=== PATIENT | female | born 1975 | race Hispanic/Latino ===

== ENCOUNTER → 2024-04-01 11:24 | Outpatient (REF) | payer OTHER, SELFPAY ==
[2024-04-01 12:46] LABS: Hematocrit 43.2 % (37.0-47.0); Hemoglobin 13.9 g/dL (12.0-16.0); Mean Corp Hgb Conc. 32.2 g/dL (33.0-37.0); Mean Corpuscular Hgb 29.6 pg (27.0-31.0); Mean Corpuscular Volume 92.1 fL (81.0-99.0); Mean Platelet Volume 9.8 fL (7.4-10.4); Platelet Count 242 10^3/uL (130-400); Red Blood Cell Count 4.69 10^6/uL (4.20-5.40); Red Cell Dist. Width 13.5 % (11.5-14.5); White Blood Cell Count 5.9 10^3/uL (4.8-10.8)
[2024-04-01 13:16] LABS: ALT (SGPT) 23 U/L (0-35); AST (SGOT) 25 U/L (14-36); Albumin 4.5 g/dl (3.5-5.0); Alkaline Phosphatase 94 U/L (38-126); Blood Urea Nitrogen 15 mg/dl (7-17); Calcium 9.4 mg/dl (8.4-10.2); Carbon Dioxide 26 mmol/L (22-30); Chloride 102 mmol/L (98-107); Glucose 99 mg/dl (70-99); HDL Cholesterol 45 mg/dl; LDL Cholesterol, Calculated 91 mg/dl; Potassium 4.4 mmol/L (3.5-5.1); Sodium 139 mmol/L (135-145); Total Bilirubin 0.8 mg/dl (0.2-1.3); Total Cholesterol 159 mg/dl (50-199); Total Protein 7.4 g/dl (6.3-8.2); Triglyceride 116 mg/dl (10-149); Very Low Density Lipoprotein 23 mg/dl (0-30); eGFR > 60.00
[2024-04-01 13:43] LABS: Glycohemoglobin (HgbA1c) 6.2 % (4.0-5.6)
[2024-04-01 13:46] LABS: TSH Reflex To Free T4 0.58 uIU/ml (0.47-4.68)
== END ==
LOC: RAD 11:24
PROVIDERS: ATTENDING PHYSICIAN Nurse Practitioner Adult Health
DX: Z00.00 Encounter for general adult medical examination without abnormal findings (principal); Z83.3 Family history of diabetes mellitus
CPT/HCPCS: 36415; 80053; 80061; 83036; 84443; 85027

== ENCOUNTER → 2024-04-04 09:48 | Outpatient (REF) | payer OTHER, SELFPAY ==
[2024-04-10 03:26] LABS: HPV, High Risk Not Detected; HPV, High Risk Source Cervical
== END ==
LOC: CLINIC 09:48
PROVIDERS: ATTENDING PHYSICIAN Nurse Practitioner Adult Health
DX: Z12.4 Encounter for screening for malignant neoplasm of cervix (principal)
CPT/HCPCS: 87624; G0123

== ENCOUNTER → 2024-04-08 14:16 | Outpatient (REF) | payer SELFPAY | LOC: WDC 14:16 | PROVIDERS: ATTENDING PHYSICIAN Nurse Practitioner Adult Health | DX: Z12.31 Encounter for screening mammogram for malignant neoplasm of breast (principal) | CPT/HCPCS: 77063; 77067 ==

== ENCOUNTER → 2024-04-17 09:08 | Outpatient (REF) | payer SELFPAY | LOC: WDC 09:08 | PROVIDERS: ATTENDING PHYSICIAN Nurse Practitioner Adult Health | DX: R92.8 Other abnormal and inconclusive findings on diagnostic imaging of breast (principal) | CPT/HCPCS: 76642 ==

== ENCOUNTER → 2024-07-04 12:15 | Outpatient (REF) | payer OTHER, SELFPAY ==
[2024-07-04 13:08] LABS: Blood Urea Nitrogen 12 mg/dl (7-17); Calcium 9.6 mg/dl (8.4-10.2); Carbon Dioxide 28 mmol/L (22-30); Chloride 102 mmol/L (98-107); Glucose 101 mg/dl (70-99); Potassium 4.6 mmol/L (3.5-5.1); Sodium 138 mmol/L (135-145); eGFR > 60.00
[2024-07-04 14:14] LABS: Glycohemoglobin (HgbA1c) 6.3 % (4.0-5.6)
== END ==
LOC: CLINIC 12:15
PROVIDERS: ATTENDING PHYSICIAN Nurse Practitioner Adult Health
DX: R73.03 Prediabetes (principal)
CPT/HCPCS: 36415; 80048; 83036

== ENCOUNTER → 2024-12-30 11:40 | Outpatient (REF) | payer OTHER, SELFPAY ==
[2024-12-30 13:49] LABS: Blood Urea Nitrogen 13 mg/dl (7-17); Calcium 9.1 mg/dl (8.4-10.2); Carbon Dioxide 24 mmol/L (22-30); Chloride 107 mmol/L (98-107); Glucose 123 mg/dl (70-99); Potassium 4.3 mmol/L (3.5-5.1); Sodium 137 mmol/L (135-145); eGFR > 60.00
[2024-12-30 14:12] LABS: Glycohemoglobin (HgbA1c) 7.5 % (4.0-5.6)
== END ==
LOC: CLINIC 11:40
PROVIDERS: ATTENDING PHYSICIAN Nurse Practitioner Adult Health
DX: R73.03 Prediabetes (principal)
CPT/HCPCS: 36415; 80048; 83036

== ENCOUNTER 2024-12-31 19:10 | Emergency (ER) | payer OTHER, SELFPAY ==
[2024-12-31 19:12] VITALS: BP 129/76
[2024-12-31 19:46] LABS: Hematocrit 38.6 % (37.0-47.0); Hemoglobin 13.0 g/dL (12.0-16.0); Mean Corp Hgb Conc. 33.7 g/dL (33.0-37.0); Mean Corpuscular Volume 86.7 fL (81.0-99.0); Nucleated Red Blood Cells % 0 %; Platelet Count 229 10^3/uL (130-400); Red Cell Dist. Width 13.9 % (11.5-14.5)
[2024-12-31 20:05] LABS: ALT (SGPT) 25 U/L (0-35); AST (SGOT) 27 U/L (14-36); Albumin 4.1 g/dl (3.5-5.0); Alkaline Phosphatase 97 U/L (38-126); Blood Urea Nitrogen 14 mg/dl (7-17); Calcium 9.0 mg/dl (8.4-10.2); Carbon Dioxide 25 mmol/L (22-30); Chloride 105 mmol/L (98-107); Glucose 262 mg/dl (70-99); Potassium 4.0 mmol/L (3.5-5.1); Sodium 138 mmol/L (135-145); Total Protein 6.9 g/dl (6.3-8.2); eGFR > 60.00
[2024-12-31 20:16] LABS: Troponin I < 0.012 ng/ml
[2024-12-31 20:59] LABS: APTT 25.0 Sec (23.4-35.0)
[2024-12-31 21:43] VITALS: BMI 36.5
[2024-12-31 21:51] VITALS: BP 118/75
--- NOTE | 2024-12-31 22:13 | ED.GENMED ---
History of Present Illness
General
Chief Complaint: DVT/Possible Blood Clot
Source: patient and family
Time Seen by Provider: 12/31/24 21:45
History of Present Illness
History of Present Illness:
Note:
CHIEF COMPLAINT(S)
Pain in the left leg for one month.
HISTORY OF PRESENT ILLNESS
The patient is a 49-year-old female who presents with pain in her left leg, persisting for one month. She reports the pain started without any injury and described initially feeling a 'kind of a knob' in her left calf. The pain began while she was
sitting and has been persistent since then. The patient did not sustain any injury to the leg. She visited an urgent care facility previously, and sent for evaluation. The pain is located posterior to the knee, particularly behind it, extending
downward. The discomfort increases with bending the knee and is pronounced when pressure is applied to the muscle region, specifically the hamstring area.
The patient is reassured there is good blood flow to the foot, as evidenced by palpable pulses, and there is no evidence of blood clots. It is suspected the pain is related to muscular strain, possibly involving the hamstring muscles. The
recommendation is for rest and light stretching exercises over the next week. If there is no improvement, follow-up with her primary care physician is advised.
SOCIAL HISTORY
The patient denies the use of any medication at home and confirms she does not take medication regularly. She reports no smoking, alcohol, or drug use.
MEDICATIONS
The patient has not been taking any medications at home but will begin using ibuprofen every six hours for the next two to three days for pain management.
PHYSICAL EXAM
General: Alert, no acute distress.
Skin: Warm, dry.
Head: Normocephalic, atraumatic.
Neck: Supple, trachea midline.
Eyes, Ears, Nose, Mouth, and Throat: Oral mucosa moist.
Cardiovascular: Normal peripheral perfusion, palpable dorsal pedal pulses bilaterally, no edema.
Respiratory: Respirations are non-labored.
Gastrointestinal: Abdomen nondistended.
Back: Normal range of motion, normal alignment.
Musculoskeletal: Tenderness noted in the left hamstring and calf region, full range of motion with discomfort upon knee extension, no knee effusion, and no swelling present.
Neurological: Alert and oriented to person, place, time, and situation, no focal neurological deficit observed.
Psychiatric: Cooperative, appropriate mood, and affect.
PROBLEM LIST
Acute:
- Left leg pain, likely muscular in origin.
PLAN
1. Rest and light stretching of the affected leg.
2. Use of ibuprofen every six hours for 2-3 days for pain relief.
3. Follow up with the primary care physician within 1-2 weeks if symptoms do not improve or worsen.
DIFFERENTIAL DIAGNOSIS
The Differential Diagnosis includes, in no particular order and is not limited to:
- Muscle strain
- Tendinitis
- Deep vein thrombosis (ruled out)
- Bakers cyst
- Sciatica
- Arthritis
- Nerve compression
- Myositis
- Popliteal artery entrapment syndrome
- Lumbar radiculopathy
Disposition:
SUMMARY OF ENCOUNTER
A 49-year-old female presents with left leg pain persisting for one month. The pain began without any injury and is localized around the knee, especially behind it, extending downward. Ultrasound examination at an urgent care facility ruled out deep
vein thrombosis (DVT). The emergency department evaluation included confirmation of DVT exclusion and an electrocardiogram (EKG) showing normal sinus rhythm without ischemic changes. The patient demonstrates tenderness in the left gastrocnemius
muscle region with good arterial blood flow, indicating a likely musculoskeletal origin rather than vascular. The patient has elevated blood glucose noted on a complete metabolic panel (CMP). Troponin levels are negative, ruling out cardiac
involvement.
ASSESSMENT
Left leg pain, likely of musculoskeletal origin due to suspected calf muscle strain. Elevated blood glucose level needs consideration for follow-up.
PLAN
Rest and light stretching of the affected leg are recommended. Use of ibuprofen every six hours for 2-3 days for pain relief. Patient is advised to follow up with her primary care physician within 1-2 weeks for repeat fasting lab work and further
evaluation of leg pain if symptoms do not improve.
INDEPENDENT REVIEW OF LABS AND INTERPRETATION OF TESTS
- My independent review of EKG shows normal sinus rhythm at a rate of 85, with a normal axis and no acute ischemic changes.
- My independent review of the complete metabolic panel (CMP) shows an elevated blood glucose level at 262 mg/dL.
PATIENT EDUCATION AND COUNSELING
Discussed the importance of rest and light stretching exercises to aid recovery from suspected muscle strain. Advised monitoring of blood glucose levels and possible further evaluation for hyperglycemia implications with her primary care physician.
FOLLOW-UP INSTRUCTIONS
Follow up with primary care physician within 1-2 weeks for repeat fasting lab work and further leg pain evaluation if no improvement.
MEDICATION RECONCILIATION
No home medications. Begin ibuprofen every six hours for the next 2-3 days for pain management.
MEDICAL DECISION MAKING
- Number and Complexity of Problems Addressed: Differential diagnoses include muscle strain, tendonitis, Bakers cyst, sciatica, arthritis, nerve compression, myositis, popliteal artery entrapment syndrome, lumbar radiculopathy, and deep vein
thrombosis (ruled out).
- Data:
- Category 1: Reviewed lab tests include EKG and CMP, with independent interpretation of results as noted.
- Risk: Prescription medication (ibuprofen) was prescribed for pain management. Consideration of Admission/Observation: Escalation of care was considered but the patient is deemed safe for outpatient management, as work-up showed no acute
life-threatening processes.
DIAGNOSIS
- Muscle strain, unspecified: ICD-10: M62.40
- Hypoglycemia, unspecified: ICD-10: R73.9
Past History
Past History
ED Past Medical History: None
ED Past Surgical History: None
Social History
Tobacco: Non-smoker
Alcohol: None
Phy Exam
Physical Exam
Physical Exam:
.
Course
Orders/Labs/Results
Orders:
Orders
12/31/24 19:17
ECG [Electrocardiogram (*1)] Urgent
Reason for Study: Chest Pain
EKG- Treatment ONCE
US Periph Venous LOWER Ext LT Urgent
Comment:
Reason For Exam: L leg pain
12/31/24 19:34
Complete Blood Count/With Diff Urgent
Comprehensive Metabolic Panel Urgent
PTT Urgent
Troponin I Urgent
Abnormal Lab Results
12/31/24
19:34
Glucose 262 H mg/dl
(70-99)
12/31/24 19:34
12/31/24 19:34
Vital Signs
Initial and Last Documented VS:
Initial Vital Signs
Temp Pulse Resp BP Pulse Ox
98.3 F 95 16 129/76 96
12/31/24 19:12 12/31/24 19:12 12/31/24 19:12 12/31/24 19:12 12/31/24 19:12
Last Documented Vital Signs
Temp Pulse Resp BP Pulse Ox
98.1 F 72 18 118/75 99
12/31/24 21:51 12/31/24 21:51 12/31/24 21:51 12/31/24 21:51 12/31/24 21:51
*Pulse Oximetry
SaO2: 99
Oxygen Mode of Delivery: Room air
Patient hypoxic: no
*Critical Care Note
Total Time (30-74mins, 75-104mins- exclusive of procedures): Not Applicable
ED Attending Note
-
Portions of this chart may have been created with voice recognition software.� Occasional wrong word or��sound alike� substitutions may have occurred due to the inherent limitations of voice recognition software.
Discharge Plan
Departure
Patient Disposition: Home (Routine Discharge)
Date of Disposition: 12/31/24
Time of Disposition: 22:14
Patient with high blood pressure during this ER visit?: No
Discharge Problem:
Acute leg pain, Acute hyperglycemia
Instructions: High blood sugar in adults - ED (DC)
Prescriptions:
No Action
hydrocodone-acetaminophen 1 TABLET tablet
1 - 2 tab PO Q4HPRN PRN (Reason: moderate to severe pain) Qty: 20 0RF
Referrals:
[facility] [Other]
Activity Restrictions/Additional Instructions:
Leg pain
Your blood work revealed that your blood sugar was high. Please see your doctor in the next 1 week to have this repeated and have fasting levels measured.
Please rest your leg and perform light stretching as discussed. In addition, you may use ibuprofen every 6 hours as needed.
Return immediately for worsening pain, fevers, swelling, discoloration of the feet or legs or any other concerns. Please see your doctor in follow-up
Dolor de pierna
Soto an�lisis de beba revel� que ten�a niveles altos de az�car en beba. Consulte a soto m�dico en la pr�xima semana para que le repita el an�lisis y le mida los niveles en ayunas.
Descanse la pierna y realice estiramientos ligeros seg�n lo indicado. Adem�s, puede darian ibuprofeno cada 6 horas seg�n sea necesario.
Regrese de inmediato si presenta empeoramiento del dolor, fiebre, hinchaz�n, decoloraci�n de los pies o las piernas o cualquier otra inquietud. Consulte a soto m�dico en la felton de seguimiento.
Interventions
Interventions:
*Risk Screen - Suicide Last Done: 12/31/24 21:44
*General Assessment Last Done: 12/31/24 21:44
*Neglect/Abuse Screening Last Done: 12/31/24 21:44
*ED- Fall Risk Assessment Last Done: 12/31/24 21:44
*ED COVID-19 Vaccine History Last Done: 12/31/24 21:44
ED- Cardiac Assessment Last Done: 12/31/24 21:46
ED- Pulmonary Assessment Last Done: 12/31/24 21:46
ED-Peripheral Vascular Assessment Last Done: 12/31/24 21:46
ED-Skin Assessment Last Done: 12/31/24 21:46
Discharge Date and Time
Print Language: ARMENIAN
[2024-12-31] MEDS: MOTRIN 600 MG PO (22:22)
[2024-12-31 22:28] LABS: Glucose - Point of Care 140 mg/dl (70-99)
== END 2024-12-31 22:31 | disposition home or self-care (01) ==
LOC: EMR 19:10
PROVIDERS: Emergency Medicine; EMERGENCY PHYSICIAN Emergency Medicine
DX: M79.662 Pain in left lower leg (principal); R73.9 Hyperglycemia, unspecified
CPT/HCPCS: 99284; 80053; 82962; 84484; 85025; 85730; 93005; 93971

== ENCOUNTER → 2025-03-30 11:50 | Outpatient (REF) | payer OTHER, SELFPAY ==
[2025-03-30 13:16] LABS: ALT (SGPT) 42 U/L (0-35); AST (SGOT) 37 U/L (14-36); Albumin 4.2 g/dl (3.5-5.0); Alkaline Phosphatase 121 U/L (38-126); Blood Urea Nitrogen 10 mg/dl (7-17); Calcium 9.0 mg/dl (8.4-10.2); Carbon Dioxide 28 mmol/L (22-30); Chloride 101 mmol/L (98-107); Glucose 141 mg/dl (70-99); HDL Cholesterol 35 mg/dl; LDL Cholesterol, Calculated 69 mg/dl; Potassium 4.3 mmol/L (3.5-5.1); Sodium 134 mmol/L (135-145); Total Protein 7.2 g/dl (6.3-8.2); Very Low Density Lipoprotein 32 mg/dl (0-30); eGFR > 60.00
[2025-03-30 13:19] LABS: Glycohemoglobin (HgbA1c) 8.7 % (4.0-5.9)
== END ==
LOC: CLINIC 11:50
PROVIDERS: ATTENDING PHYSICIAN Nurse Practitioner Adult Health
DX: E11.69 Type 2 diabetes mellitus with other specified complication (principal)
CPT/HCPCS: 36415; 80053; 80061; 83036